=== PATIENT | female | born 1935 | race Caucasian/White ===

== ENCOUNTER 2019-04-14 15:08 | Emergency (ER) | payer MEDICARE, OTHER ==
[~2019-04-14] VITALS: Ht 160 cm; Wt 54.0 kg
--- NOTE | 2019-04-14 15:19 | NUR ---
PT IS IN ROOM #1B. DR PACHECO EVALUATED THE PT.
[2019-04-14] MEDS ORDERED: MORPHINE SULFATE 2 MG/1 ML DISP.SYRIN IV ONE (15:45)
[2019-04-14] MEDS ORDERED: ONDANSETRON 4 MG/2 ML VIAL IV ONE (15:45)
[2019-04-14] MEDS ORDERED: ONDANSETRON 4 MG/2 ML VIAL ONE (15:51)
[2019-04-14] MEDS ORDERED: MORPHINE SULFATE 2 MG/1 ML DISP.SYRIN ONE (15:52)
[2019-04-14] MEDS ORDERED: MORPHINE SULFATE 4 MG/1 ML DISP.SYRIN ONE (16:21)
[2019-04-14] MEDS ORDERED: MORPHINE SULFATE 4 MG/1 ML DISP.SYRIN IV ONE ×2 (16:30→19:45)
--- NOTE | 2019-04-14 17:45 | NUR ---
DR PACHECO CONTACTED TO [facility]. PT IS GOING TO BE TRNSFERED TO [facility]. CASE #[id number].
--- NOTE | 2019-04-14 19:20 | NUR ---
Received transfer information from [facility]. Patient to be transferred to [facility] Emergency Room. Accepting MD is Dr. Andre and number to report to . ETA for [facility] ambulance 10 min.
--- NOTE | 2019-04-14 19:35 | NUR ---
[facility] arrived to ER to transport patient to [facility] Emergency Room. Report and documentation given to EMT.
[2019-04-14] MEDS ORDERED: OXYCODONE/APAP 5-325 MG TABLET PO ONE (19:45)
--- NOTE | 2019-04-14 19:54 | NUR ---
Report given to Belgica GREGORIO [facility] Emergency Room.
== END 2019-04-14 19:58 | disposition short-term general hospital (02) ==
LOC: ER 15:08
DX: S42.211A Unspecified displaced fracture of surgical neck of right humerus, initial encounter for closed fracture (principal); J45.909 Unspecified asthma, uncomplicated; W18.30XA Fall on same level, unspecified, initial encounter; Y93.89 Activity, other specified; Y92.89 Other specified places as the place of occurrence of the external cause; Y99.8 Other external cause status
CPT/HCPCS: 29105; 71101; 73030; 73080; 96374; 96375; 99285; J2270 ×2; J2405; A4663